=== PATIENT | male | born 1935 | race Caucasian/White ===

== ENCOUNTER 2020-08-27 17:09 | Inpatient (IN) ==
[2020-08-27 19:37] LABS: ABS Lymphocytes 1.1 10^3/ul (1.0-4.8); ABS Monocytes 1.1 10^3/ul (0-0.8); ABS Neutrophils 10.8 10^3/ul (1.5-7.7); Eosinophil % 0.1 %; Hematocrit 39 % (42-52); Hemoglobin 12.8 g/dL (14.0-18.0); Lymphocyte % 8.2 %; Mean Corpuscular HGB Conc 33 g/dL (31-36); Mean Corpuscular Hemoglobin 35 pg (27-31); Mean Corpuscular Volume 107 fL (80-94); Mean Platelet Volume 8.4 fL (7.4-10.4); Platelet Count 116 10^3/uL (150-450); Red Blood Count 3.64 10^6 /uL (4.18-5.48); Red Cell Distribution Width 15 % (10-15); White Blood Count 13.1 10^3/uL (3.5-10.8)
[2020-08-27 19:39] LABS: ALT 70 U/L (7-52); Albumin 3.6 g/dL (3.2-5.2); Albumin/Globulin Ratio 1.1 (1-3); Alkaline Phosphatase 95 U/L (34-104); BUN/Creatinine Ratio 28.9 (8-20); Blood Urea Nitrogen 71 mg/dL (6-24); CO2 Carbon Dioxide 18 mmol/L (22-32); Calcium 9.2 mg/dL (8.6-10.3); Chloride 109 mmol/L (101-111); Creatine Kinase 457 U/L (10-223); EGFR African American 30.6 (>60); EGFR Non-African American 25.3 (>60); Globulin 3.2 g/dL (2-4); Glucose 110 mg/dL (70-100); Sodium 137 mmol/L (135-145); Total Protein 6.8 g/dL (6.4-8.9)
[2020-08-27 19:42] LABS: Anion Gap 10 mmol/L (2-11); Troponin I 0.37 ng/mL (<0.03)
[2020-08-27 19:53] LABS: TSH Ultra Thyroid Stim Horm 1.28 mcIU/mL (0.34-5.60)
[2020-08-27 19:55] LABS: Free T4 0.75 ng/dL (0.61-1.12)
[2020-08-27] MEDS ORDERED: Vancomycin 1,000 MG in NS 0.9% 250 ml 250 ML IVPB ONE (21:02)
[2020-08-27] MEDS ORDERED: Ondansetron 4 mg VIAL 2 MG/ML 2 ml VIAL IV PRN (21:02)
[2020-08-27] MEDS ORDERED: Oxymetazoline 0.05% NASAL SPR 15 ML BTL BOTH NARES ONE (21:02)
[2020-08-27] MEDS ORDERED: Vancomycin 1,500 MG in NS 0.9% 250 ml 250 ML IVPB ONE (22:00)
[2020-08-27] MEDS ORDERED: Vancomycin per Pharmacy 1 EA NOTE FOLLOW UP SCH (22:00)
[2020-08-27 22:23] LABS: Erythrocyte Sed Rate 49 mm/Hr (0-19)
[2020-08-27] MEDS ORDERED: Benzocaine/Menthol LOZ MT ONE (22:46)
[2020-08-27 22:48] LABS: AST Redraw 82 U/L (13-39)
[2020-08-27 22:55] LABS: Troponin I 0.36 ng/mL (<0.03)
[2020-08-28] MEDS: Aspirin EC 81 mg TAB.EC (enteric coated) PO SCH ×2 (00:46→09:19)
[2020-08-28] MEDS: NS 0.9% 1000 ml BAG 1,000 ML IV SCH ×2 (00:46→12:10)
[2020-08-28 01:08] LABS: Troponin I 0.32 ng/mL (<0.03)
[2020-08-28 05:56] LABS: ABS Lymphocytes 1.3 10^3/ul (1.0-4.8); ABS Monocytes 1.2 10^3/ul (0-0.8); Eosinophil % 0.4 %; Hematocrit 37 % (42-52); Hemoglobin 12.2 g/dL (14.0-18.0); Lymphocyte % 11.9 %; Mean Corpuscular HGB Conc 34 g/dL (31-36); Mean Corpuscular Hemoglobin 35 pg (27-31); Mean Corpuscular Volume 105 fL (80-94); Mean Platelet Volume 8.7 fL (7.4-10.4); Platelet Count 114 10^3/uL (150-450); Red Blood Count 3.46 10^6 /uL (4.18-5.48); Red Cell Distribution Width 15 % (10-15); White Blood Count 10.6 10^3/uL (3.5-10.8)
[2020-08-28 05:59] LABS: INR 2.2 (0.82-1.09)
[2020-08-28 06:05] LABS: Anion Gap 8 mmol/L (2-11); BUN/Creatinine Ratio 27.7 (8-20); Blood Urea Nitrogen 65 mg/dL (6-24); CO2 Carbon Dioxide 19 mmol/L (22-32); Calcium 8.5 mg/dL (8.6-10.3); Chloride 109 mmol/L (101-111); Creatine Kinase 411 U/L (10-223); EGFR African American 32.2 (>60); EGFR Non-African American 26.6 (>60); Glucose 106 mg/dL (70-100); Potassium 4.2 mmol/L (3.5-5.0); Sodium 136 mmol/L (135-145)
[2020-08-28] MEDS ORDERED: Vancomycin Random Level NOTE FOLLOW UP ONE (10:00)
[2020-08-28] MEDS ORDERED: Vancomycin 1000 MG in NS 0.9% 250 ML IVPB SCH (13:30)
[2020-08-28 17:24] LABS: Troponin I 0.25 ng/mL (<0.03)
[2020-08-29] MEDS: NS 0.9% 1000 ml BAG 1,000 ML IV SCH (02:15)
[2020-08-29 06:55] LABS: ABS Eosinophils 0.2 10^3/ul (0-0.6); ABS Lymphocytes 0.8 10^3/ul (1.0-4.8); ABS Monocytes 0.9 10^3/ul (0-0.8); ABS Neutrophils 5.5 10^3/ul (1.5-7.7); Eosinophil % 2.3 %; Hematocrit 37 % (42-52); Hemoglobin 12.2 g/dL (14.0-18.0); Lymphocyte % 11.2 %; Mean Corpuscular HGB Conc 33 g/dL (31-36); Mean Corpuscular Hemoglobin 35 pg (27-31); Mean Corpuscular Volume 106 fL (80-94); Mean Platelet Volume 8.6 fL (7.4-10.4); Platelet Count 119 10^3/uL (150-450); Red Blood Count 3.51 10^6 /uL (4.18-5.48); Red Cell Distribution Width 15 % (10-15); White Blood Count 7.4 10^3/uL (3.5-10.8)
[2020-08-29 07:05] LABS: EGFR African American 34.8 (>60); EGFR Non-African American 28.7 (>60)
[2020-08-29 09:30] LABS: Troponin I 0.17 ng/mL (<0.03)
[2020-08-29 09:40] LABS: Anion Gap 7 mmol/L (2-11); CO2 Carbon Dioxide 17 mmol/L (22-32); Calcium 8.1 mg/dL (8.6-10.3); Chloride 114 mmol/L (101-111); Potassium 4.2 mmol/L (3.5-5.0); Sodium 138 mmol/L (135-145)
[2020-08-29 09:45] LABS: BUN/Creatinine Ratio 27.2 (8-20); Blood Urea Nitrogen 59 mg/dL (6-24); EGFR African American 35.3 (>60); EGFR Non-African American 29.2 (>60); Glucose 105 mg/dL (70-100)
[2020-08-29] MEDS: Aspirin EC 81 mg TAB.EC (enteric coated) PO SCH (09:49)
[2020-08-29 12:37] LABS: Folate 11.95 ng/mL (>3.99)
[2020-08-29] MEDS ORDERED: Albuterol 2.5mg/3 ml (0.083%) NEB.SOLN INH ONE (14:57)
[2020-08-29] MEDS ORDERED: Sulfamethox/Trimethoprim DS TAB 800/160 mg PO ONE (16:00)
[2020-08-29] MEDS: Albuterol HFA INHALER 8 gm MDI INH PRN ×2 (16:05→22:13)
[2020-08-29 16:29] LABS: Vitamin B12 277 pg/mL (180-914)
[2020-08-29 20:46] LABS: Cholesterol 110 mg/dL; HDL Cholesterol 46.8 mg/dL; LDL Cholesterol 40 mg/dL; Triglycerides 116 mg/dL
[2020-08-30 06:58] LABS: ALT 86 U/L (7-52); AST 101 U/L (13-39); Albumin 3.3 g/dL (3.2-5.2); Alkaline Phosphatase 98 U/L (34-104); BUN/Creatinine Ratio 24.5 (8-20); Blood Urea Nitrogen 53 mg/dL (6-24); CO2 Carbon Dioxide 19 mmol/L (22-32); Calcium 9.4 mg/dL (8.6-10.3); EGFR African American 35.5 (>60); EGFR Non-African American 29.3 (>60); Globulin 3.3 g/dL (2-4); Glucose 117 mg/dL (70-100); Indirect Bilirubin 0.7 mg/dL (0.3-1.0); Potassium 4.9 mmol/L (3.5-5.0); Sodium 139 mmol/L (135-145); Total Protein 6.6 g/dL (6.4-8.9)
[2020-08-30 06:59] LABS: Anion Gap 8 mmol/L (2-11); Chloride 112 mmol/L (101-111)
[2020-08-30 07:16] LABS: ABS Eosinophils 0.1 10^3/ul (0-0.6); ABS Lymphocytes 0.9 10^3/ul (1.0-4.8); ABS Monocytes 0.9 10^3/ul (0-0.8); ABS Neutrophils 4.6 10^3/ul (1.5-7.7); Eosinophil % 1.8 %; Hematocrit 36 % (42-52); Hemoglobin 12.1 g/dL (14.0-18.0); Lymphocyte % 13.5 %; Mean Corpuscular HGB Conc 33 g/dL (31-36); Mean Corpuscular Hemoglobin 35 pg (27-31); Mean Corpuscular Volume 106 fL (80-94); Mean Platelet Volume 8.5 fL (7.4-10.4); Nucleated Red Blood Cells % 0.1; Platelet Count 131 10^3/uL (150-450); Red Blood Count 3.41 10^6 /uL (4.18-5.48); Red Cell Distribution Width 15 % (10-15); White Blood Count 6.6 10^3/uL (3.5-10.8)
[2020-08-30] MEDS: Aspirin EC 81 mg TAB.EC (enteric coated) PO SCH (09:15)
[2020-08-30] MEDS: Sulfamethox/Trimethoprim SS TAB 400/80 mg PO SCH ×2 (09:16→21:36)
[2020-08-30] MEDS ORDERED: Albuterol HFA INHALER 8 gm MDI INH PRN (09:26)
[2020-08-30] MEDS ORDERED: Albuterol/Ipratropium NEB.SOL (2.5/0.5 MG) 3 ML NEB.SOLN INH PRN (10:53)
[2020-08-30 11:52] LABS: Troponin I 0.49 ng/mL (<0.03)
[2020-08-30] MEDS ORDERED: Vancomycin Trough Check NOTE FOLLOW UP ONE (13:00)
[2020-08-30 13:37] LABS: EGFR African American 37.1 (>60); EGFR Non-African American 30.6 (>60)
[2020-08-30 13:48] LABS: Vancomycin Trough 13.2 mcg/mL
[2020-08-31] MEDS: Aspirin EC 81 mg TAB.EC (enteric coated) PO SCH (11:31)
[2020-08-31] MEDS: Sulfamethox/Trimethoprim SS TAB 400/80 mg PO SCH (11:31)
[2020-08-31 11:33] VITALS: BP 114/52
== END 2020-08-31 13:30 | disposition home or self-care (01) | DRG 603 ==
LOC: ED 17:09 → MEDTELE 20:56
PROVIDERS: ADMIT Internal Medicine; ATTEND Internal Medicine